=== PATIENT | male | born 1995 | race Caucasian/White ===

== ENCOUNTER 2017-11-30 11:50 | Emergency (ER) | payer BC ==
[2017-11-30] MEDS ORDERED: HYDROCODONE/APAP 5/325 MG TAB ONE (12:21)
[2017-11-30] MEDS ORDERED: NEOMY/POLY/HC 1% OTIC DROPS ONE (12:21)
--- NOTE | 2017-11-30 12:45 | ER ---
Nurse's Notes [facility] Name: Sawyer Boyle Age: 22 yrs Sex: Male : 1995 Arrival Date: 11/30/2017 Time: 11:53 Bed 12 Private MD: None, None Diagnosis: Acute contact otitis externa Presentation: 11/30 11:55 Presenting complaint: Patient states: i cant hear at all on my L ear and it started 2 hj days ago, reports discharges;. Transition of care: patient was not received from another setting of care. Onset of symptoms was November 30, 2017. Risk Assessment: Do you want to hurt yourself or someone else? Patient reports no desire to harm self or others. Initial Sepsis Screen: Does the patient meet any 2 criteria? No. Patient's initial sepsis screen is negative. Does the patient have a suspected source of infection? No. Patient's initial sepsis screen is negative. Care prior to arrival: None. 11:55 Method Of Arrival: Ambulatory 11:55 Acuity: RAMÓN 4 hj Triage Assessment: 11:57 General: Appears in no apparent distress. uncomfortable, Behavior is calm, cooperative, hj appropriate for age. Pain: Complains of pain in left ear Pain currently is 10 out of 10 on a pain scale. EENT: Reports pain in left ear ringing. Historical: - Allergies: 11:56 No Known Allergies; hj - Home Meds: 11:56 None [Active]; hj - PMHx: 11:56 None; hj - PSHx: 11:56 None; hj - Immunization history:: Adult Immunizations up to date. - Social history:: Smoking status: Patient uses tobacco products, smokes one-half pack cigarettes per day, Patient/guardian denies using alcohol. - Ebola Screening: : Patient negative for fever greater than or equal to 101.5 degrees Fahrenheit, and additional compatible Ebola Virus Disease symptoms Patient denies exposure to infectious person Patient denies travel to an Ebola-affected area in the 21 days before illness onset. Screenin:57 Abuse screen: Denies threats or abuse. Denies injuries from another. Nutritional hj screening: No deficits noted. Tuberculosis screening: No symptoms or risk factors identified. Fall Risk None identified. Assessment: 11:56 Reassessment: see triage assessment;. hj Vital Signs: 11:57 BP 136 / 86; Pulse 86; Resp 18; Temp 98.3(O); Pulse Ox 100% on R/A; Weight 99.79 kg; hj Height 5 ft. 7 in. (170.18 cm); Pain 10/10; 11:57 Body Mass Index 34.46 (99.79 kg, 170.18 cm) hj ED Course: 11:53 Patient arrived in ED. mr 11:53 None, None is Private Physician. mr 11:56 Triage completed. hj 11:57 Arm band placed on left wrist. hj 11:57 Patient has correct armband on for positive identification. Bed in low position. Call hj light in reach. Side rails up X 1. 12:06 [facility] snw 12:06 Edgar Rose MD is Attending Physician. snw 12:13 Miquel Geiger, RN is Primary Nurse. hj 12:54 No provider procedures requiring assistance completed. Patient did not have IV access hj during this emergency room visit. Administered Medications: 12:17 Drug: [place] 5 mg-325 mg 1 tabs Route: PO; hj 12:38 Follow up: Response: No adverse reaction; Pain is decreased hj 12:38 Drug: Cortisporin Drops 4 drops Route: Otic; Site: left ear; hj Outcome: 12:44 Discharge ordered by . snw 12:54 Discharged to home ambulatory, with family. hj 12:54 Condition: stable 12:54 Discharge instructions given to patient, family, Instructed on discharge instructions, follow up and referral plans. medication usage, Demonstrated understanding of instructions, follow-up care, medications, Prescriptions given X 3. 12:55 Patient left the ED. hj Signatures: Loreta Albright FNP-C FNP-Trice Zamarripa mr Miquel Geiger, RN RN hj
--- NOTE | 2017-11-30 12:45 | EDPHYS ---
Physician Documentation [facility] Name: Sawyer Boyle Age: 22 yrs Sex: Male : 1995 Arrival Date: 11/30/2017 Time: 11:53 Bed 12 Private MD: None, None ED Physician Edgar Rose HPI: 11/30 12:31 This 22 yrs old Male presents to ER via Ambulatory with complaints of Ear snw Pain. 12:31 The patient presents with drainage, hearing loss, pain, swelling. The complaints affect snw the left ear. Onset: The symptoms/episode began/occurred suddenly, 2 day(s) ago, and became persistent. Associated signs and symptoms: The patient has no apparent associated signs or symptoms. Severity of symptoms: At their worst the symptoms were moderate severe. The patient has not experienced similar symptoms in the past. The patient has not recently seen a physician. Historical: - Allergies: 11:56 No Known Allergies; hj - Home Meds: 11:56 None [Active]; hj - PMHx: 11:56 None; hj - PSHx: 11:56 None; hj - Immunization history:: Adult Immunizations up to date. - Social history:: Smoking status: Patient uses tobacco products, smokes one-half pack cigarettes per day, Patient/guardian denies using alcohol. - Ebola Screening: : Patient negative for fever greater than or equal to 101.5 degrees Fahrenheit, and additional compatible Ebola Virus Disease symptoms Patient denies exposure to infectious person Patient denies travel to an Ebola-affected area in the 21 days before illness onset. ROS: 12:30 Constitutional: Negative for fever, chills, and weight loss, Eyes: Negative for injury, snw pain, redness, and discharge, Neck: Negative for injury, pain, and swelling, Cardiovascular: Negative for chest pain, palpitations, and edema, Respiratory: Negative for shortness of breath, cough, wheezing, and pleuritic chest pain, Abdomen/GI: Negative for abdominal pain, nausea, vomiting, diarrhea, and constipation, Back: Negative for injury and pain, : Negative for injury, bleeding, discharge, and swelling, MS/Extremity: Negative for injury and deformity, Skin: Negative for injury, rash, and discoloration, Neuro: Negative for headache, weakness, numbness, tingling, and seizure. 12:30 ENT: Positive for ear pain, of the left ear. Exam: 12:30 Constitutional: This is a well developed, well nourished patient who is awake, alert, snw and in no acute distress. Head/Face: Normocephalic, atraumatic. Eyes: Pupils equal round and reactive to light, extra-ocular motions intact. Lids and lashes normal. Conjunctiva and sclera are non-icteric and not injected. Cornea within normal limits. Periorbital areas with no swelling, redness, or edema. Neck: Trachea midline, no thyromegaly or masses palpated, and no cervical lymphadenopathy. Supple, full range of motion without nuchal rigidity, or vertebral point tenderness. No Meningismus. Chest/axilla: Normal chest wall appearance and motion. Nontender with no deformity. No lesions are appreciated. Cardiovascular: Regular rate and rhythm with a normal S1 and S2. No gallops, murmurs, or rubs. Normal PMI, no JVD. No pulse deficits. Respiratory: Lungs have equal breath sounds bilaterally, clear to auscultation and percussion. No rales, rhonchi or wheezes noted. No increased work of breathing, no retractions or nasal flaring. Abdomen/GI: Soft, non-tender, with normal bowel sounds. No distension or tympany. No guarding or rebound. No evidence of tenderness throughout. Back: No spinal tenderness. No costovertebral tenderness. Full range of motion. Skin: Warm, dry with normal turgor. Normal color with no rashes, no lesions, and no evidence of cellulitis. MS/ Extremity: Pulses equal, no cyanosis. Neurovascular intact. Full, normal range of motion. Neuro: Awake and alert, GCS 15, oriented to person, place, time, and situation. Cranial nerves II-XII grossly intact. Motor strength 5/5 in all extremities. Sensory grossly intact. Cerebellar exam normal. Normal gait. 12:30 ENT: Ear canal(s): erythema, purulent discharge, that is moderate, swelling, that is moderate, that is severe, of the left canal, TM's: not visable, Nose: is normal, Mouth: is normal, Posterior pharynx: is normal, Voice: is normal. Vital Signs: 11:57 BP 136 / 86; Pulse 86; Resp 18; Temp 98.3(O); Pulse Ox 100% on R/A; Weight 99.79 kg; hj Height 5 ft. 7 in. (170.18 cm); Pain 10/10; 11:57 Body Mass Index 34.46 (99.79 kg, 170.18 cm) MDM: 12:09 Patient medically screened. snw 12:46 Data reviewed: vital signs, nurses notes. Data interpreted: Pulse oximetry: on room air snw is 100 %. Interpretation: normal. Counseling: I had a detailed discussion with the patient and/or guardian regarding: the historical points, exam findings, and any diagnostic results supporting the discharge/admit diagnosis, the presence of at least one elevated blood pressure reading (>120/80) during this emergency department visit, the need for outpatient follow up, to return to the emergency department if symptoms worsen or persist or if there are any questions or concerns that arise at home. Special discussion: I have referred the patient to see his PCP for further evaluation of high blood pressure. Based on the history and exam findings, there is no indication for further emergent testing or inpatient evaluation. I discussed with the patient/guardian the need to see the ENT specialist for further evaluation of the symptoms. I discussed with the patient/guardian the need to see the primary care provider for further evaluation of the symptoms. 11/30 12:17 Order name: [facility] [place]. Order: ear wick; Complete Time: 12:38 snw Administered Medications: 12:17 Drug: [place] 5 mg-325 mg 1 tabs Route: PO; 12:38 Follow up: Response: No adverse reaction; Pain is decreased 12:38 Drug: Cortisporin Drops 4 drops Route: Otic; Site: left ear; Disposition: 11/30/17 12:44 Discharged to Home. Impression: Acute contact otitis externa. - Condition is Stable. - Discharge Instructions: Otitis Externa, Heat Therapy. - Prescriptions for Tylenol- Codeine #3 300-30 mg Oral Tablet - take 2 tablets by ORAL route every 6 hours As needed; 15 tablet. Diclofenac Sodium 75 mg Oral Tablet Sustained Release - take 1 tablet by ORAL route 2 times per day; 30 tablet. Ciprodex 0.3- 0.1 % Otic Drops, Suspension - instill 4 drop by OTIC route every 12 hours for 7 days , for ears ONLY; 1 Container. - Medication Reconciliation Form, Thank You Letter, Antibiotic Education, Prescription Opioid Use form. - Follow up: Private Physician; When: 2 - 3 days; Reason: Recheck today's complaints, Continuance of care, Re-evaluation by your physician. Follow up: Emergency Department; When: As needed; Reason: Worsening of condition. Addendum: 12/02/2017 06:19 Co-signature as Attending Physician, Edgar Rose MD. g s Signatures: Loreta Albright, MATIAS-C RN CARDIAC-Csnw Miquel Geiger, RN RN Edgar Red MD MD gs Corrections: (The following items were deleted from the chart) 11/30 12:55 12:44 11/30/2017 12:44 Discharged to Home. Impression: Acute contact otitis externa. hj Condition is Stable. Forms are Medication Reconciliation Form, Thank You Letter, Antibiotic Education, Prescription Opioid Use. Follow up: Private Physician; When: 2 - 3 days; Reason: Recheck today's complaints, Continuance of care, Re-evaluation by your physician. Follow up: Emergency Department; When: As needed; Reason: Worsening of condition. snw
== END 2017-11-30 12:55 | disposition home or self-care (01) ==
LOC: ER 11:50
DX: H60.532 Acute contact otitis externa, left ear (principal); F17.210 Nicotine dependence, cigarettes, uncomplicated
CPT/HCPCS: 99283

== ENCOUNTER 2021-11-11 08:40 | Emergency (ER) | payer SELFPAY ==
--- NOTE | 2021-11-11 10:54 | RAD REPORT ---
EXAM DESCRIPTION: RAD - Hand Right 3 View - 11/11/2021 9:47 am CLINICAL HISTORY: SWELLING COMPARISON: No comparisons FINDINGS: No fracture is identified. There is no dislocation or periosteal reaction noted. Site of skin injury was not delineated. On these images, no retained foreign body is confirmed. IMPRESSION: No acute bone or joint finding of the right hand. No foreign body confirmed.
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
[2021-11-11] MEDS ORDERED: IBUPROFEN 200 MG TAB PO ONE (11:19)
[2021-11-11 13:24] VITALS: BP 131/91; TEMP 98.5; O2SAT 99
== END 2021-11-11 11:44 | disposition home or self-care (01) ==
LOC: ER 08:40
DX: S61.411A Laceration without foreign body of right hand, initial encounter (principal); S60.511A Abrasion of right hand, initial encounter; F17.210 Nicotine dependence, cigarettes, uncomplicated; F17.220 Nicotine dependence, chewing tobacco, uncomplicated